=== PATIENT | female | born 1995 | race Caucasian/White ===

== ENCOUNTER 2021-07-12 15:33 | Emergency (ER) | payer SELFPAY ==
[2021-07-12 15:42] VITALS: BP 105/69; PULSE 101; TEMP 97.8; BMI 19.2
[2021-07-12] MEDS ORDERED: ACETAMINOPHEN 325 MG TABLET (FP) PO ONE (16:30)
[2021-07-12] MEDS ORDERED: ACETAMINOPHEN 325 MG TABLET (FP) ONE (16:32)
== END 2021-07-12 17:09 | disposition home or self-care (01) ==
LOC: JERFT 15:33
DX: S93.401A Sprain of unspecified ligament of right ankle, initial encounter (principal); X50.0XXA Overexertion from strenuous movement or load, initial encounter
CPT/HCPCS: 73610-TC-RT-FY; 73630-TC-RT-FY; 99283-25